=== PATIENT | female | born 1995 ===

== ENCOUNTER 2024-05-15 15:53 | Inpatient (IN) | payer OTHER ==
[~2024-05-15] VITALS: Ht 165.1 cm; Wt 84.0 kg
[2024-05-15] VITALS (10 sets, daily range): BP systolic 111–128; BP diastolic 56–70
[2024-05-15] MEDS ORDERED: Oxytocin 10 Unit / ML Vial ONE (16:04)
[2024-05-15] MEDS ORDERED: Oxytocin 10 Unit / ML Vial IM PRN (16:20)
[2024-05-15] MEDS ORDERED: Tranexamic Acid 100 ML IV SCH (16:20)
[2024-05-15] MEDS ORDERED: Carboprost Tromethamine 250 MCG/ML 1ML Amp IM PRN (16:20)
[2024-05-15] MEDS ORDERED: Misoprostol 200 MCG Tab BC PRN (16:20)
[2024-05-15] MEDS ORDERED: Ondansetron HCl 2 MG / ML 2ML Vial IV PRN (16:20)
[2024-05-15] MEDS ORDERED: Misoprostol 200 MCG Tab PR PRN (16:20)
[2024-05-15] MEDS ORDERED: Methylergonovine Maleate 0.2MG / ML 1ML Amp IM PRN ×2 (16:20→16:30)
[2024-05-15] MEDS ORDERED: Calcium Carbonate 500 MG Tab Chew PO SCH (16:20)
[2024-05-15] MEDS ORDERED: Acetaminophen 500 MG Tab PO PRN (16:20)
[2024-05-15] MEDS ORDERED: Benzocaine Topical Anesthetic Spray 60GM TOP PRN (16:25)
[2024-05-15] MEDS ORDERED: Acetaminophen 325 MG TABLET PO PRN (16:25)
[2024-05-15] MEDS ORDERED: PRENATAL TABLE1 EAC2 PO (16:30)
[2024-05-15] MEDS ORDERED: Lactated Ringer's 1,000 ML IV SCH (16:30)
[2024-05-15] MEDS ORDERED: Ibuprofen 400 MG Tab PO PRN (16:30)
[2024-05-15] MEDS ORDERED: Witch Hazel/Glycerin PADS TOP PRN (16:30)
[2024-05-15] MEDS ORDERED: Docusate Sodium 100 MG Cap PO PRN (16:30)
[2024-05-15] MEDS ORDERED: FLU VACC TS2024-25(6MOS UP)/PF 45 MCG/0.5 ML SYRINGE IM SCH (16:30)
[2024-05-15] MEDS ORDERED: Diphth,Pertuss(Acell),Tet Vac 0.5 ML VIAL IM ONE (16:30)
[2024-05-15] MEDS ORDERED: SLOW FE137 MG PO (16:31)
[2024-05-15] MEDS ORDERED: Oxytocin 10 Unit / ML Vial IM ONE (16:35)
[2024-05-15] MEDS ORDERED: Lanolin Cream TOP PRN (16:35)
[2024-05-15] MEDS ORDERED: OxyCODONE 5 mg/Acetamin 325 mg TABLET PO PRN (16:35)
[2024-05-15] MEDS ORDERED: Misoprostol 100 MCG Tab PO PRN (16:35)
[2024-05-16 04:41] VITALS: BP 95/53
[2024-05-16 06:11] LABS: Hematocrit 32.5 % (33.0-51.0); Hemoglobin 10.4 g/dL (11.5-16.0); Mean Corpuscular HGB 31.1 pg (26.0-34.0); Mean Corpuscular Volume 97 fL (80-100); Mean Platelet Volume 10.9 fL (9.1-12.4); Platelet Count 269 K/mm3 (150-400); RDW Coefficient Variation 14.3 % (11.7-14.2); RDW Standard Deviation 51.4 fL (35.1-46.3); Red Blood Cell Count 3.34 M/mm3 (3.80-5.20); White Blood Cell Count 19.09 K/mm3 (4.00-11.30)
[2024-05-16 07:36] VITALS: BP 107/54
[2024-05-16] MEDS ORDERED: Prenatal Vit/FE Fumarate/FA 1 Tab PO SCH (09:00)
[2024-05-16 11:26] VITALS: BP 124/58
[2024-05-16] MEDS ORDERED: Diphth,Pertuss(Acell),Tet Vac 0.5 ML VIAL IM ONE (15:25)
--- NOTE | 2024-05-16 17:25 | NUR ---
NO QUESITONS AND CONCERNS FROM PT OR Gabriela ROMEO. FOLLOW UP APPOINTMENT SCHEDULED. ALL PERSONAL BELONGINGS RETURNED. PT IS DISCHARGED HOME, DRIVEN BY Gabriela ROMEO.
== END 2024-05-16 17:24 | disposition home or self-care (01) | DRG 806 ==
LOC: OBS 15:53 → BC 16:02
PROVIDERS: ADMIT Advanced Practice Midwife
PROC: 10E0XZZ Delivery of Products of Conception, External Approach (ICD-10-PCS; principal; 2024-05-15)
DX: O48.0 Post-term pregnancy (principal); O99.324 Drug use complicating childbirth; Z37.0 Single live birth; Z3A.41 41 weeks gestation of pregnancy; F12.90 Cannabis use, unspecified, uncomplicated
CPT/HCPCS: 36415; 85027; 90715; A9270; J2590